=== PATIENT | female | born 1970 | race Caucasian/White ===

== ENCOUNTER 2016-08-14 11:29 | Day surgery (SDC) | payer OTHER ==
[~2016-08-14] VITALS: Ht 165.1 cm; Wt 62.6 kg
[~2016-08-14 11:29] MED LIST: AUGMENTIN875 MG PO; LEXAPRO10 MG PO; MOTRIN800 MG PO; NAPROXEN500 MG PO
[2016-08-14 12:07] LABS: HEMATOCRIT 36.5 % (36.0-46.0); MCH 31.4 PG (29.0-34.0); MCHC 32.9 G/DL (30.0-36.0); MCV 95.5 FL (83-99); MEAN PLAT.VOLUME 9.7 uM^3 (9.5-12.4); PLATELET COUNT 181 K/uL (156-360); RBC DIS.WIDTH-CV 12.4 % (11.8-14.6); RBC DIS.WIDTH-SD 43.1 % (39-53); RED BLOOD COUNT 3.82 M/uL (3.80-5.20); WHITE BLOOD COUNT 5.2 K/uL (4.1-10.2)
[2016-08-14 12:43] VITALS: BP 110/69
[2016-08-14 15:15] VITALS: BP 110/56
[2016-08-14 16:45] VITALS: BP 96/53
[2016-08-18 09:45] LABS: INTERNAL CONTROL VALID? YES
== END 2016-08-14 17:05 | disposition home or self-care (01) ==
LOC: SDC 11:29
PROVIDERS: Anesthesiology; Orthopaedic Surgery
DX: M75.101 Unspecified rotator cuff tear or rupture of right shoulder, not specified as traumatic (principal); M75.41 Impingement syndrome of right shoulder; S43.431A Superior glenoid labrum lesion of right shoulder, initial encounter; M19.90 Unspecified osteoarthritis, unspecified site
CPT/HCPCS: 84703; 85027; C1713; J0330; J0690; J1100; J2250; J2405; J2795; J3010